=== PATIENT | female | born 1955 | race Caucasian/White ===

== ENCOUNTER 2016-09-24 09:23 | Observation (INO) | payer OTHER ==
[2016-09-24 09:34] VITALS: TEMP 97.4
[2016-09-24] MEDS ORDERED: Sodium Chloride 0.9% 2,000 ML IV ONE (10:17)
--- NOTE | 2016-09-24 10:17 | C.PDOC ---
History Of Present Illness The patient, a 60 y/o female, presents to the ED for evaluation of nausea, vomiting, and diarrhea which began around 3 days ago. Patient reports new onset of generalized weakness and lightheadedness today. Patient states he tried to get to work today but became dizzy. Patient reports occasional abdominal cramping. She denies fever, chills, and sick contacts. NVD X 3 DAYS. NEW ONSET GEN WEAKNESS, LIGHTHEADEDNESS TODAY. PS TRIED TO GET TO WORK BUT DIZZY. NO FEVER. OCC ABD CRAMPING. NO SICK CONTACTS. EXAM MILD DIST NONTOXIC MM DRY ABD NEG NORMAL TURGOR Time Seen by Provider: 09/24/16 10:01 Chief Complaint (Nursing): Abdominal Pain History Per: Patient History/Exam Limitations: no limitations Onset/Duration Of Symptoms: Days (3) Current Symptoms Are (Timing): Still Present Quality Of Discomfort: Cramping (occasional ), "Pain" Associated Symptoms: Nausea, Vomiting, Diarrhea. denies: Fever, Chills Exacerbating Factors: None Additional History Per: Patient Past Medical History Reviewed: Historical Data, Nursing Documentation, Vital Signs Vital Signs: Last Vital Signs Temp 97.4 F L 09/24/16 09:34 Pulse 62 09/24/16 12:48 Resp 16 09/24/16 12:48 BP 113/73 09/24/16 12:48 Pulse Ox 98 09/24/16 12:48 - Medical History PMH: No Chronic Diseases Surgical History: No Surg Hx Family History: States: Unknown Family Hx Review Of Systems Except As Marked, All Systems Reviewed And Found Negative. Constitutional: Negative for: Fever, Chills Gastrointestinal: Positive for: Nausea, Vomiting, Abdominal Pain (cramping ), Diarrhea Neurological: Positive for: Dizziness, Other (+lightheadedness ) Physical Exam - Physical Exam Appears: Non-toxic, Other (mild distress ) Skin: Normal Color, Warm, Dry, Other (+normal turgor ) Head: Atraumatic, Normacephalic Eye(s): bilateral: Normal Inspection, PERRL, EOMI Oral Mucosa: Dry Neck: Normal ROM, Supple Chest: Symmetrical, No Deformity, No Tenderness Cardiovascular: Rhythm Regular, No Murmur Respiratory: Normal Breath Sounds, No Rales, No Rhonchi, No Wheezing Gastrointestinal/Abdominal: Soft, No Tenderness, No Guarding, No Rebound Back: Normal Inspection, No Vertebral Tenderness, No Paraspinal Tenderness Extremity: Normal ROM, Capillary Refill (less than 2 seconds ) Neurological/Psych: Oriented x3, Normal Speech, Normal Cognition Gait: Steady ED Course And Treatment - Laboratory Results Result Diagrams: 09/24/16 11:46 09/24/16 11:46 ECG: Interpreted By Me ECG Rhythm: Sinus Rhythm ECG Interpretation: Normal Rate From EC O2 Sat by Pulse Oximetry: 99 (on RA) Pulse Ox Interpretation: Normal Medical Decision Making Medical Decision Making: Plan: * Plan: * EKG * BMP * CBC * Chest X-Ray * Lomotil, IVF * Urinalysis * Reassess and Disposition ED OBSERVATION Discharge: Yes Date of observation admission: 09/24/16 Time of observation admission: 10:00 - Observation admission statement Patient is being placed in observation because:: NVD, GEN WEAKNESS, DIZZY - Goals of Observation Goals of observation are:: SX IMPROVE - Progress Note Progress Note: 09/24/16 13:50 FEELS BETTER AMBUL WO ASSOC DIZZ. +UO. REQUESTS DC HOME Disposition Counseled Patient/Family Regarding: Studies Performed, Diagnosis, Need For Followup, Rx Given - Disposition Disposition: HOME/ ROUTINE Disposition Time: 13:50 Condition: IMPROVED - Clinical Impression Clinical Impression: Vomiting, Diarrhea, Weakness, Postural lightheadedness - Scribe Statement The provider has reviewed the documentation as recorded by the Scribe (Tiffany Jensen) Provider Attestation: All medical record entries made by the Scribe were at my direction and personally dictated by me. I have reviewed the chart and agree that the record accurately reflects my personal performance of the history, physical exam, medical decision making, and the department course for this patient. I have also personally directed, reviewed, and agree with the discharge instructions and disposition.
[2016-09-24] MEDS ORDERED: Atropine-Diphenoxylate 0.025-2.5 mg Tab PO STA (10:18)
[2016-09-24 11:52] LABS: BASO % 0.2 % (0.0-2.0); EOS % 0.3 % (0.0-4.0); HEMATOCRIT 42.3 % (34.0-47.0); LYMPH % 27.9 % (20.0-40.0); MEAN CELL VOLUME 91.5 fL (81.0-99.0); MEAN CORPUSCULAR HGB CONC 32.8 g/dL (33.0-37.0); MEAN PLATELET VOLUME 8.6 fL (7.2-11.7); MONO # 0.4 K/uL (0.0-0.8); MONO % 10.4 % (0.0-10.0); RED CELL DISTRIBUTION WIDTH 13.2 % (11.5-14.5); WHITE BLOOD COUNT 3.4 K/uL (4.8-10.8)
--- NOTE | 2016-09-24 11:57 | RAD ---
PROCEDURE: CHEST RADIOGRAPH, 1 VIEW HISTORY: WEAKNESS, NVD COMPARISON: None available. FINDINGS: LUNGS: Clear. PLEURA: No pneumothorax or pleural fluid seen. Biapical pleural parenchymal thickening noted. CARDIOVASCULAR: Normal. OSSEOUS STRUCTURES: No significant abnormalities. VISUALIZED UPPER ABDOMEN: Normal. OTHER FINDINGS: None. IMPRESSION: No focal airspace opacity.
[2016-09-24 12:01] LABS: CHLORIDE 101 mmol/L (98-107); POTASSIUM 4.2 mmol/L (3.6-5.2); SODIUM 139 mmol/L (132-148)
[2016-09-24 12:03] LABS: GFR AFRICAN-AMERICAN > 60
[2016-09-24 12:04] LABS: BLOOD UREA NITROGEN 19 mg/dL (7-17); CALCIUM 9.2 mg/dl (8.6-10.4); CARBON DIOXIDE 29 mmol/L (22-30); GLUCOSE,RANDOM 93 mg/dL (65-105)
[2016-09-24] MEDS ORDERED: Atropine-Diphenoxylate 0.025-2.5 mg Tab ONE (12:09)
[2016-09-24 12:26] LABS: RBC URINE < 1 /hpf (0-3); URINE BILIRUBIN NEGATIVE (NEGATIVE); URINE BLOOD NEGATIVE (NEGATIVE); URINE COLOR Straw (YELLOW); URINE GLUCOSE (UA) NORMAL (Normal); URINE KETONE NEGATIVE (NEGATIVE); URINE LEUKOCYTE ESTERASE NEG Leu/uL (Negative); URINE PROTEIN NEGATIVE (NEGATIVE); URINE UROBILINOGEN NORMAL mg/dL (0.2-1.0)
[2016-09-24] MEDS ORDERED: Sodium Chloride 0.9% 2,000 ML ONE (12:50)
[2016-09-24 12:56] VITALS: BP 113/73; PULSE 62; RESP 16
[2016-09-24 13:51] VITALS: O2SAT 99
--- NOTE | 2016-09-27 18:48 | CARD ---
APPROVED REPORT EKG Measurement Heart [id number] MD [id number] <Conclusion> Normal sinus rhythm Normal ECG
== END 2016-09-24 13:51 | disposition home or self-care (01) ==
LOC: C.ER 09:23 → C.9OBSV 10:00
PROVIDERS: ADMIT Emergency Medicine; ATTEND Emergency Medicine
DX: R11.2 Nausea with vomiting, unspecified (principal); R19.7 Diarrhea, unspecified; R42 Dizziness and giddiness
CPT/HCPCS: 71010; 80048; 81001; 85025; 93005; 96360; 99284; G0378; J7040